=== PATIENT | female | born 1990 | race Caucasian/White ===

== ENCOUNTER 2022-08-06 17:15 | Emergency (ER) | payer OTHER ==
[2022-08-06 17:43] VITALS: BP 128/75; PULSE 72; RESP 20; TEMP 98; BMI 20.1
== END 2022-08-06 20:16 | disposition home or self-care (01) ==
LOC: JERFT 17:15
DX: S00.211A Abrasion of right eyelid and periocular area, initial encounter (principal); Y99.9 Unspecified external cause status
CPT/HCPCS: 99281-25

== ENCOUNTER 2023-06-05 17:18 | Inpatient (IN) | payer OTHER ==
[2023-06-05] MEDS: ELECTROLYTE-148 SOLN 1,000 ML IV SCH (18:00)
[2023-06-05] MEDS ORDERED: OXYTOCIN 30 UNITS in 0.9% NS 30 UNIT/500 ML INFUS.BAG IVPB SCH (18:15)
[2023-06-05] MEDS ORDERED: AMPICILLIN - 2 GM in SODIUM CHLORIDE 100 ML IVPB ONE (18:15)
[2023-06-05 18:36] VITALS: BMI 26.6
[2023-06-05] MEDS ORDERED: OXYTOCIN 30 UNITS in 0.9% NS 30 UNIT/500 ML INFUS.BAG IVPB ONE (18:38)
[2023-06-05] MEDS ORDERED: AMPICILLIN SODIUM 2 GM VIAL ONE (18:38)
[2023-06-05] MEDS ORDERED: AMPICILLIN SODIUM 1 GM VIAL ONE (22:36)
[2023-06-05] MEDS: AMPICILLIN - 1 GM in SODIUM CHLORIDE 100 ML IVPB SCH (22:40)
[2023-06-06] MEDS: ELECTROLYTE-148 SOLN 1,000 ML IV SCH ×2 (02:00→09:25)
[2023-06-06] MEDS ORDERED: AMPICILLIN SODIUM 1 GM VIAL ONE ×3 (02:26→10:38)
[2023-06-06] MEDS: AMPICILLIN - 1 GM in SODIUM CHLORIDE 100 ML IVPB SCH ×3 (02:30→10:35)
[2023-06-06] MEDS ORDERED: FENTANYL/BUPIVACAINE/NS/PF - PCEA - 50 ML DISP.SYRIN EP ONE ×2 (04:19→08:55)
[2023-06-06] MEDS ORDERED: LIDO 2%/EPI 1:200000 PRESRVFRE (20 ML SDVIAL) ONE (04:29)
[2023-06-06] MEDS ORDERED: BUPIVACAINE HCL/PF 0.25% (2.5MG/ML) 10 ML VIAL ONE ×2 (04:29→06:02)
[2023-06-06] MEDS: FENTANYL/BUPIVACAINE/NS/PF - PCEA - 50 ML DISP.SYRIN EP SCH ×2 (04:45→09:03)
[2023-06-06] MEDS ORDERED: NALOXONE HCL 0.4 MG/ML VIAL IVPUSH PRN (04:50)
[2023-06-06] MEDS ORDERED: OXYTOCIN 20 UNITS in 0.9% NS 20 UNIT/1,000 ML INFUS.BAG IV ONE ×2 (10:37→14:18)
[2023-06-06] MEDS ORDERED: SODIUM CHLORIDE 100 ML IVPB ONE (10:38)
[2023-06-06] MEDS: OXYTOCIN 20 UNITS in 0.9% NS 20 UNIT/1,000 ML INFUS.BAG IV SCH ×2 (13:30→14:30)
[2023-06-06] MEDS ORDERED: ACETAMINOPHEN 325 MG TABLET (FP) PO PRN (13:33)
[2023-06-06] MEDS ORDERED: BISACODYL 10 MG SUPP.RECT RC PRN (13:33)
[2023-06-06] MEDS ORDERED: BENZOCAINE 28 GM HEMORRHOIDAL OINTMENT TP PRN (13:33)
[2023-06-06] MEDS ORDERED: BENZOCAINE 20% 57 GM BOTTLE TP PRN (13:33)
[2023-06-06] MEDS ORDERED: METHYLERGONOVINE MALEATE 0.2 MG/1 ML AMP IM PRN (13:33)
[2023-06-06] MEDS ORDERED: oxyCODONE HCL 5 MG TABLET PO PRN (13:33)
[2023-06-06] MEDS ORDERED: WITCH HAZEL 50% (TUCKS) 40 PAD/JAR PAD TP PRN (13:33)
[2023-06-06] MEDS: IBUPROFEN 600 MG TABLET (FP) PO PRN ×2 (13:52→19:23)
[2023-06-06] MEDS ORDERED: IBUPROFEN 600 MG TABLET (FP) PO ONE (13:53)
[2023-06-07] MEDS: IBUPROFEN 600 MG TABLET (FP) PO PRN ×2 (06:19→20:56)
[2023-06-07 07:54] LABS: BASO % 0.7 % (0-2.0); EOS % 0.8 % (0-4.5); HEMATOCRIT 30.8 % (32.4-45.2); HEMOGLOBIN 10.1 GM/dL (10.7-15.3); LYMPH % 10.7 % (8-40); MCH 30.2 pg (25.7-33.7); MEAN CELL VOLUME 91.5 fl (80-96); MEAN PLT VOLUME 11.4 fl (7.5-11.1); MONO % 6.1 % (3.8-10.2); NEUT % 81.7 % (42.8-82.8); PLATELET COUNT 129 10^3/uL (134-434); RBC 3.36 M/mm3 (3.60-5.2); RDW 14.8 % (11.6-15.6); WHITE BLOOD COUNT 11.1 K/mm3 (4.0-10.0)
[2023-06-07 10:15] VITALS: RESP 18
[2023-06-07] MEDS ORDERED: SENNOSIDES/DOCUSATE COMBO (SENNA PLUS) TABLET (UD) PO PRN (22:00)
[2023-06-08 09:15] VITALS: BP 114/61; PULSE 76; TEMP 98.5
== END 2023-06-08 11:23 | disposition home or self-care (01) | DRG 807 ==
LOC: JLDR 17:18 → J3W 06-06 15:00
PROVIDERS: ADMIT Obstetrics & Gynecology; ATTEND Specialist
PROC: 0W8NXZZ Division of Female Perineum, External Approach (ICD-10-PCS; principal; 2023-06-06)
PROC: 10E0XZZ Delivery of Products of Conception, External Approach (ICD-10-PCS; 2023-06-06)
DX: O48.0 Post-term pregnancy (principal); Z37.0 Single live birth; O99.824 Streptococcus B carrier state complicating childbirth; Z3A.40 40 weeks gestation of pregnancy
CPT/HCPCS: 36415; 85025

== ENCOUNTER 2025-04-23 05:45 | Day surgery (SDC) | payer OTHER ==
[2025-04-19 13:38] VITALS: BMI 21.8
[2025-04-23] MEDS ORDERED: PROPOFOL 20 ML ONE (13:46)
[2025-04-23] MEDS ORDERED: LIDOCAINE HCL/PF 2% SDV 5ML VIAL ONE (13:47)
[2025-04-23] MEDS ORDERED: MIDAZOLAM HCL 2 MG/2 ML SINGLE DOSE VIAL ONE (14:03)
[2025-04-23] MEDS ORDERED: ONDANSETRON 4 MG/2 ML VIAL ONE (14:19)
[2025-04-23] MEDS ORDERED: DEXAMETHASONE SOD PHOSPHATE 4 MG/1 ML VIAL ONE (14:19)
[2025-04-23] MEDS ORDERED: IBUPROFEN 400 MG TABLET (FP) PO PRN (15:22)
[2025-04-23] MEDS ORDERED: ACETAMINOPHEN 325 MG TABLET (FP) PO PRN (15:22)
[2025-04-23] MEDS ORDERED: oxyCODONE HCL 5 MG TABLET PO PRN (15:45)
[2025-04-23] MEDS ORDERED: ONDANSETRON 4 MG/2 ML VIAL IVPUSH PRN (15:45)
[2025-04-23] MEDS: LACTATED RINGERS SOLUTION 1,000 ML IV SCH (15:54)
[2025-04-23 15:56] VITALS: RESP 18
[2025-04-23 16:05] VITALS: TEMP 96.8
[2025-04-23 17:19] VITALS: BP 109/60; PULSE 66
== END 2025-04-23 17:05 | disposition home or self-care (01) ==
LOC: JASU-SURG 05:45
PROVIDERS: ATTEND Obstetrics & Gynecology
PROC: 0UBC7ZX Excision of Cervix, Via Natural or Artificial Opening, Diagnostic (ICD-10-PCS; principal; 2025-04-23 13:00)
DX: D06.7 Carcinoma in situ of other parts of cervix (principal)
CPT/HCPCS: 81025; 88305-TC; 88307-TC; 88341-TC; 88342-TC; 94760